=== PATIENT | male | born 1970 | race Caucasian/White ===

== ENCOUNTER → 2024-04-30 | Outpatient (CLI) | payer MEDICARE ==
--- NOTE | 2024-04-30 14:54 | CTL ---
EXAMINATION TYPE: CT Low Dose Lung DATE OF EXAM ORDERED: 04/30/2024 COMPARISON: None CLINICAL INDICATION: Male, 54 years old with history of Z12.2 LUNG CA SCR Z87.891 HX NICOTINE DEPENDE NCE; PHH, Former smoker, quit x10yrs ago. 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 TECHNIQUE: Low dose computed tomography scan was performed through the chest at 1 mm thick sections a nd reconstructed images in multiple planes at 1 mm and [address] DLP: 97.[address] CTDI: 2.6 mGy Automated exposure control for dose reduction was used. CT DIAGNOSTIC QUALITY: Satisfactory FINDINGS: Nodules: Right middle lobe 4 mm pulmonary nodule (series 6, image 49). LUNGS: COPD: Severity: None Fibrosis: Severity: None Lymph nodes: None Other findings: Left lower lobe minimal linear atelectasis. RIGHT PLEURAL SPACE: Effusion: Trace Calcification: None Thickening: None Pneumothorax: None LEFT PLEURAL SPACE: Effusion: Trace Calcification: None Thickening: None Pneumothorax: None HEART: Heart Size: Normal Coronary Calcification: Small Pericardial Effusion: Small OTHER FINDINGS: Upper abdomen: None Bony thorax: None Supraclavicular region: None Other: Mild bilateral gynecomastia. IMPRESSION: 1. Right middle lobe 4 mm pulmonary nodule. 2. Trace bilateral pleural effusions. CT LUNG RAD AND CT CHEST RECOMMENDATION: Lung-Rad 2 Benign Appearance or Behavior: Continue annual sc reening with LDCT in 12 months. S Modifier (other clinically significant findings): None [facility], , 04/30/2024 2:52 PM
== END | disposition home or self-care (01) ==
LOC: RADCTMAIN 14:04
PROVIDERS: ATTEND Internal Medicine Critical Care Medicine
DX: Z12.2 Encounter for screening for malignant neoplasm of respiratory organs (principal); Z87.891 Personal history of nicotine dependence; R91.1 Solitary pulmonary nodule; J90 Pleural effusion, not elsewhere classified
CPT/HCPCS: 71271

== ENCOUNTER → 2024-08-03 | Outpatient (CLI) | payer MEDICARE | LOC: 3 N SLEEP 14:59 | PROVIDERS: ATTEND Internal Medicine Critical Care Medicine | DX: Z53.9 Procedure and treatment not carried out, unspecified reason (principal) ==

== ENCOUNTER → 2024-08-21 | Outpatient (CLI) | payer MEDICARE ==
--- NOTE | 2024-08-25 23:53 | P.PCN ---
Date of Procedure: 08/21/24 Operative Findings: Home sleep study History 55-year-old male patient, diagnosed having mild MANGO. Origin on HST was done back in 2018 and at that time the patient had an AHI of 7 and the patient was given an APAP machine pressures of 5/15 cm of water. Over the years, he benefits from the treatment and he feels that on those nights when he uses the machine he wakes up more refreshed. Comorbidities include schizoaffective disorder, chronic anxiety and depression. He has chronic fatigue and sleepine ss. He takes Adderall for daytime stimulation. The patient was given a newer generation CPAP unit which is a ResMed 11 and remains on treatment with good compliancy. During his most recent evaluation in the office, the patient was switched to a CPAP pressure of 6 cm of water. A home sleep study was ordered to evaluate ongoing need for CPAP therapy. Pertinent physical findings The patient's weight is 172 with a BMI of 24 Technical description The ResMed ApneaLink system was used to complete his home sleep study. This is a type III of sleep study evaluation. The total recording duration was 7 hours and 56 minutes. The study started at 10:29 PM and ended at 6:26 AM. There was a total of 7 hours and 44 minutes of flow monitoring and 7 hours of 43 minutes of oxygen saturation monitoring. Results Respiratory analysis showed a total of 4 obstructive apneas and 3 obstructive hypopneas. The resulting AHI was 0.9 Oxygenation analysis Average pulse ox during sleep was 93% with a minimum pulse ox of 90% without any significant oxygen desaturation and the patient was able to maintain saturation above 90% throughout sleep study Cardiac summary Average heart rate was 67 with a minimum heart rate of 51 and a maximum heart rate of 120 Assessment History of obstructive sleep apnea. Based on the current home sleep study, the patient is AHI is dropped down to 0.9 without any oxygen saturation and the patient seems to have recovered from his sleep apnea Plan This is a negative study. No need for ongoing CPAP therapy. This will be discussed with the patient.
== END ==
LOC: 3 N SLEEP 13:00
PROVIDERS: ATTEND Internal Medicine Critical Care Medicine
DX: G47.33 Obstructive sleep apnea (adult) (pediatric) (principal)